=== PATIENT | female | born 1950 | race American Indian/Alaskan Native ===

== ENCOUNTER 2017-03-24 07:25 | Day surgery (SDC) | payer BC ==
[2017-03-24] MEDS ORDERED: NACL 0.9% 1000 ML 1,000 ML IV SCH (09:00)
[2017-03-24] MEDS ORDERED: HURRICAINE ONE 20% TOPICAL SPRAY MM NR (09:00)
[2017-03-24 09:38] LABS: Basophils % (Auto) 0.7 % (0.0-1.8); Eosinophils % (Auto) 0.4 % (0.0-4.3); Hematocrit 34.5 % (30.3-42.9); Hemoglobin 11.5 gm/dl (10.1-14.3); Lymphocytes # (Auto) 1.3 K/mm3 (1.2-5.4); Lymphocytes % (Auto) 44.9 % (13.4-35.0); Mean Corpuscular HGB Conc 33 % (30-34); Mean Corpuscular Hemoglobin 29 pg (28-32); Mean Corpuscular Volume 88 fl (79-97); Monocytes # (Auto) 0.3 K/mm3 (0.0-0.8); Monocytes % (Auto) 10.7 % (0.0-7.3); Platelet Count 226 K/mm3 (140-440); Red Blood Count 3.93 M/mm3 (3.65-5.03); Red Cell Distribution Width 14.5 % (13.2-15.2)
--- NOTE | 2017-03-24 09:41 | Anesthesia Day of Surgery ---
Anesthesia Day of Surgery - Day of Surgery Patient Examined: Yes Patient H&P Reviewed: Yes Patient is NPO: Yes
--- NOTE | 2017-03-24 09:42 | Anesthesia Consultation ---
Anesthesia Consult and Med Hx Date of service: 03/24/17 - Airway Anesthetic Teeth Evaluation: Good ROM Head & Neck: Adequate Mental/Hyoid Distance: Inadequate (receeding chin) Mallampati Class: Class III Intubation Access Assessment: Possibly Difficult - Pulmonary Exam CTA: Yes - Cardiac Exam Cardiac Exam: RRR - Pre-Operative Health Status ASA Pre-Surgery Classification: ASA3 Proposed Anesthetic Plan: General - Pulmonary Hx Smoking: No Hx Sleep Apnea: Yes (?) - Cardiovascular System Hx Heart Murmur: Yes (MVP on atenolol for palpatations) - Central Nervous System Hx Psychiatric Problems: Yes - Other Systems Hx Cancer: No - Additional Comments Anesthesia Medical History Comments: glaucoma
[2017-03-24] MEDS ORDERED: SUBLIMAZE IV PRN (09:43)
[2017-03-24 09:50] LABS: BUN/Creatinine Ratio 16; Blood Urea Nitrogen 11 mg/dL (7-17); Hemolysis Index 1; INR 0.92 (0.87-1.13)
[2017-03-24 09:51] LABS: Partial Thromboplastin Time 31.5 Sec. (24.2-36.6)
[2017-03-24] MEDS ORDERED: DIPRIVAN 10 MG/ML IV ONE ×2 (10:27)
[2017-03-24] MEDS ORDERED: XYLOCAINE MPF 2% ONE (10:28)
--- NOTE | 2017-03-24 11:13 | Post Anesthesia Evaluation ---
- Post Anesthesia Evaluation Patient Participated: Yes Airway Patent: Yes Stable Respiratory Function: Yes Nausea/Vomiting: No Temp > 96.8F: Yes Pain Manageable: Yes Adequeate Hydration: Yes Anesthesia Complications: No
[2017-03-24 11:57] VITALS: BP 155/88
== END 2017-03-24 14:27 | disposition home or self-care (01) ==
LOC: CATHLABREC 07:25 → EDSTATUS 08:15 → CATHLABREC 14:27
PROVIDERS: ATTEND Specialist
DX: I34.1 Nonrheumatic mitral (valve) prolapse (principal); Z79.01 Long term (current) use of anticoagulants
CPT/HCPCS: 36415; 80048; 85025; 85610; 85730; 93312; 93320; 93325; J2704; J7030